=== PATIENT | female | born 1990 | race Caucasian/White ===

== ENCOUNTER → 2021-07-26 11:33 | Outpatient (CLI) | payer BC, SELFPAY ==
--- NOTE | ~2021-07-26 | XR_ITS ---
EXAMINATION: XR abdomen/kub 1V INDICATION: Low back pain TECHNIQUE: Supine views of the abdomen were obtained on 2 radiographs. COMPARISON: None FINDINGS: There is a moderate volume of colonic stool. No dilated loops of bowel are evident. The vis ualized lung bases are clear. No acute osseous findings are evident.. IMPRESSION: 1. No radiographic correlate for the patient's symptoms. Reviewed, dictated and finalized at location F.
== END ==
PROVIDERS: PCP Nurse Practitioner Family; Visit Provider Nurse Practitioner Family
DX: M54.50 Low back pain, unspecified (principal)
CPT/HCPCS: 74018

== ENCOUNTER 2023-07-11 15:11 | Outpatient (CLI) | payer SELFPAY ==
--- NOTE | ~2023-07-11 | XR_ITS ---
EXAMINATION: SACRUM/COCCYX DATE: 07/11/2023 15:59 INDICATION: Low back pain TECHNIQUE: Three views sacrum/coccyx FINDINGS: No prior studies for comparison. There is no displaced fracture of the sacrum. The coccyx demonstrates overall normal morphology with out acute angulation. IMPRESSION: 1. No acute displaced osseous abnormality of the sacrum. Suspicion for occult or nondisplaced sacral fracture can either be evaluated with CT or MRI. 2. Grossly normal morphology to the coccyx without acute angulation. However, due to the wide range of normal variation of the coccyx, acute injury would be best evaluated by clinical examination and patient's symptoms. Reviewed, dictated and finalized at location A.
--- NOTE | ~2023-07-11 | XR_ITS ---
XR lumbar spine 2-3V 07/11/2023 15:59 Indication: Low back pain Procedure: 3 views lumbar spine Comparison: No prior studies for comparison. Findings: Normal lumbar lordosis. Vertebral body and disc heights are preserved. No fracture, subluxa tion or dislocation. Sacral foramen are symmetric. No evidence for spondylolisthesis. Mild dextrocurv ature of the upper lumbar spine. Impression: 1: Mild dextroscoliosis. Reviewed, dictated and finalized at location A. Impression: 1: Mild dextroscoliosis.
== END 2023-07-11 15:12 ==
PROVIDERS: PCP Family Medicine; Visit Provider Physician Assistant
DX: M53.3 Sacrococcygeal disorders, not elsewhere classified (principal); M54.50 Low back pain, unspecified; T14.8XXA Other injury of unspecified body region, initial encounter
CPT/HCPCS: 72100; 72220